=== PATIENT | female | born 2000 | race Two or more races ===

== ENCOUNTER 2023-09-25 19:28 | Emergency (ER) | payer OTHER ==
[2023-09-25 19:35] VITALS: BP 123/76; PULSE 74; RESP 18; TEMP 98.3; BMI 27.8
[2023-09-25] MEDS: INSULIN (NOVOLOG) ASPART 100 UNITS/ML 10ML VIAL SQ ONE (21:23)
[2023-09-25] MEDS: INSULIN ASPART SLIDING SCALE (NOVOLOG) 1 VIAL SQ SCH (21:24)
== END 2023-09-25 21:56 | disposition home or self-care (01) ==
LOC: JERFT 19:28
DX: Z76.0 Encounter for issue of repeat prescription (principal)
CPT/HCPCS: 82962; 99281-25